=== PATIENT | female | born 1995 | race Caucasian/White ===

== ENCOUNTER 2020-06-17 18:50 | Emergency (ER) | payer OTHER ==
[~2020-06-17] VITALS: Ht 160 cm; Wt 77.6 kg
[2020-06-17 19:13] VITALS: Ht 160 cm; Wt 77.6 kg
[2020-06-18 00:27] VITALS: BP 123/78
== END 2020-06-18 00:27 | disposition home or self-care (01) ==
LOC: ED 18:50
DX: N76.0 Acute vaginitis (principal); N39.0 Urinary tract infection, site not specified
CPT/HCPCS: 87491; 87591; J0696